=== PATIENT | male | born 2000 | race Caucasian/White ===

== ENCOUNTER 2021-12-26 08:40 | Emergency (ER) | payer SELFPAY ==
[2021-12-26 08:40] VITALS: BP 158/92; PULSE 79; RESP 16; TEMP 36.6; O2SAT 99; BMI 29.1
--- NOTE | 2021-12-26 08:59 | EDS_ITS ---
HPI History of Present Illness Chief Complaint: Back Detail of Chief Complaint: Back pain x5 days Informant: patient Onset/Context/Timing Current Severity: Moderate Maximum Severity: Severe Worsened by: improves with Movement, Ambulation, Bending and Lifting Associated Symptoms Associated Symptoms: Negative for Numbness, Tingling, Radiation to Right Leg, Radiation to Left Leg, Fever, Abdominal Pain, Dysuria, Unable to Ambulate, Unable to Transfer, Urinary Retention, Urinary Incontinence, Constipation or Fecal Incontinence Narrative Narrative: Patient presents the emergency department complaint of back pain that started initially 5 days ago. Patient states that he woke up with discomfort in his back. He denies any falls or injuries. Patient has had history of some back pain issues and used to wear a brace at work. 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 Patient denies any pain rating down his legs. He denies loss of bowel or bladder function. He denies paresthesias. He denies weakness to the extremities. He said no fever. He denies urinary sympt oms. Prior similar symptoms: Yes PFSH [facility] Medical History (Updated 12/26/21 @ 09:[address] Marichuy Robbins, DO) Contusion of nose, initial encounter Deviation of nose to right side Home Medications cyclobenzaprine 10 mg tablet 10 mg PO TID PRN Muscle Spasm #20 TABLETS 12/26/21 [Rx Last Taken Unknown] naproxen 500 mg tablet 500 mg PO BID #14 tabs 12/26/21 [Rx Last Taken Unknown] Allergy/AdvReac Type Severity Reaction Status Date / Time No Known Allergies Allergy Verified 12/26/21 08:43 Social History (Updated 12/11/21 @ 11:08 by Annetta Prabhakar) Smoking Status: Never smoker Smokeless tobacco user: chewing tobacco ROS ROS ED Review of Systems ROS Unobtainable: other Constitutional Constitutional ED: Reports lethargy; Denies chills, fever(s), sweats or weight loss Eyes Eyes: Denies blurry vision, change in vision or diplopia ENT ENT ED: Denies rhinorrhea or sore throat Cardiovascular Cardiovascular: Denies chest pain, orthopnea or racing heartbeat Respiratory/Chest Respiratory/Chest: Denies cough, dyspnea, dyspnea on exertion, orthopnea or sputum Gastrointestinal Gastrointestinal: Denies abdominal pain, diarrhea, nausea or vomiting Genitourinary Genitourinary ED: Denies dysuria, hematuria or urinary frequency Musculoskeletal Musculoskeletal: Reports back pain; Denies arthralgias, myalgias or neck pain Integumentary Denies abscess, Abrasions or rash Neurologic Neurologic: Denies headache(s) or weakness Psychiatric Psychiatric: Denies anxiety, depression or suicidal thoughts Endocrine Endocrinology: Denies polydipsia, polyphagia or polyuria Hematologic/Lymphatic Hematologic/Lymphatic: Denies easy bleeding, easy bruising or lymphadenopathy Allergic/Immunologic Allergic/Immunologic ED: Denies mouth swelling, tongue swelling or urticaria EXAM Physical Exam Const Vital Signs: 12/26/21 08:40 Temperature 97.9 F Temperature Source Temporal Pulse Rate 79 Respiratory Rate 16 Blood Pressure 158/92 H Blood Pressure Mean 114 Pulse Ox 99 Oxygen Delivery Method Room Air Positive well nourished and well developed General Appearance ED: well developed and NAD HEENT Reports TM's clear and moist mucous membranes normocephalic and atraumatic; Negative for trauma or tenderness Tympanic Membrane ED: Yes TM's clear Eyes PERRL and EOMs intact bilaterally General Eye ED: Negative for pale conjunctiva or scleral icterus Neck no lymphadenopathy, supple and no JVD General: Negative for tenderness Chest Wall inspection of chest normal and palpation of chest normal Chest: Negative for tenderness Resp normal respiratory effort and clear to auscultation bilaterally Effort and Inspection: Negative for respiratory distress or pain with movement Auscultation: Negative for rhonchi, wheezes or diminished lung sounds Cardio regular rate, regular rhythm, S1 normal heart sound, S2 normal heart sound and no murmurs Peripheral Pulses: pulses 2+ throughout GI normal to inspection, nondistended, normoactive bowel sounds, soft to palpation, non-tender, non-distended and no masses Back/Spine no CVA tenderness Back/Spine Narrative: Patient with tenderness palpation diffusely about the lumbar paraspinal musculature that seems to reproduce his pain. Patient also with tenderness diffusely about the lumbar spine. He has negative straight leg raises. Deep tendon reflexes are plus 2 out of 4 bilaterally at the patella and Achilles. P atient has normal L5 extension bilaterally. Patient has normal sensation to light touch. Extremity normal to inspection General Extremety ED: Negative for edema General Extremity: Negative for edema Neuro oriented x3, CN's II-XII intact bilaterally, no sensory deficits noted and gait normal Sensorium / Orientation: awake, alert, oriented to person, oriented to place and oriented to time Motor Exam: strength 5/5 throughout and strength abnormal Psych mental status grossly normal Skin no rashes or lesions noted and no wounds MDM MDM MDM Narrative Medical decision making narrative: Patient with atraumatic back pain x5 days. No radiculopathic signs or symptoms. Patient has an unremarkable exam otherwise. I suspect likely muscle spasm which may be related to lifting injury. Patient will be given a prescription for Naprosyn and Flexeril. I will feel any imaging is indicated. Patient was given referral to primary care physician for follow-up. He will be given work restrictions as far as lifting. Patient advised to return if worsening pain, fever, weakness in extremities, change in bowel or bladder function, or condition should worsen anyway. Discharge Plan Triage Chief Complaint: Back ED Provider: Marichuy Robbins Dx/Rx/DC Orders Clinical Impression: Back pain Instructions: ED Back Pain (Acute or Chronic) Prescriptions: New cyclobenzaprine [cyclobenzaprine] 10 mg tablet 10 mg PO TID PRN (Reason: Muscle Spasm) Qty: 20 0RF naproxen 500 mg tablet 500 mg PO BID Qty: 14 0RF Primary Care Provider: NOT,DEFINED Referrals: Ashish Quarles MD [Med Staff - Outpatient Receptionist] - 3-5 Days NOT,DEFINED [Primary Care Provider] - Disposition Disposition: Home, Self Care
== END 2021-12-26 09:31 | disposition home or self-care (01) ==
PROVIDERS: Emergency Provider Emergency Medicine; Visit Provider Emergency Medicine
DX: M54.9 Dorsalgia, unspecified (principal); R53.83 Other fatigue
CPT/HCPCS: 99282; J7030; A4216